=== PATIENT | male | born 1995 | race Two or more races ===

== ENCOUNTER 2023-02-22 14:19 | Emergency (ER) | payer OTHER ==
[~2023-02-22] VITALS: Ht 185.4 cm; Wt 77.1 kg
== END 2023-02-22 19:20 | disposition home or self-care (01) ==
LOC: ER 14:19
PROVIDERS: General Practice
DX: J06.9 Acute upper respiratory infection, unspecified (principal); Z20.822 Contact with and (suspected) exposure to COVID-19